=== PATIENT | male | born 2000 | race Caucasian/White ===

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

== ENCOUNTER 2021-04-05 14:21 | Emergency (ER) | payer OTHER ==
[~2021-04-05] VITALS: Ht 190.5 cm; Wt 97.5 kg
[~2021-04-05 14:21] MED LIST changes: +Augmentin 875-1 EACH PO; +BENADRYL25 MG
[2021-04-05] MEDS ORDERED: HYDR1TAB94 PO (17:04)
== END 2021-04-05 17:12 | disposition home or self-care (01) ==
LOC: ER 14:21
DX: S06.9X9A Unspecified intracranial injury with loss of consciousness of unspecified duration, initial encounter (principal); S39.012A Strain of muscle, fascia and tendon of lower back, initial encounter; S90.02XA Contusion of left ankle, initial encounter; F17.210 Nicotine dependence, cigarettes, uncomplicated; V48.5XXA Car driver injured in noncollision transport accident in traffic accident, initial encounter; Y92.410 Unspecified street and highway as the place of occurrence of the external cause
CPT/HCPCS: 70450; 72100; 72125; 73610; 99283-25; A9270

== ENCOUNTER 2021-04-24 00:02 | Emergency (ER) | payer OTHER ==
[~2021-04-24] VITALS: Ht 190.5 cm; Wt 97.5 kg
[~2021-04-24 00:02] MED LIST changes: +HYDR1TAB94 PO
[2021-04-24] MEDS ORDERED: Norco 5-325 Ta1 EACH PO (02:28)
[2021-04-24] MEDS ORDERED: SULTRIDS PO (02:28)
[2021-04-24] MEDS ORDERED: CEPH500 PO (02:28)
== END 2021-04-24 02:42 | disposition home or self-care (01) ==
LOC: ER 00:02
DX: S41.111A Laceration without foreign body of right upper arm, initial encounter (principal); F17.210 Nicotine dependence, cigarettes, uncomplicated; W45.8XXA Other foreign body or object entering through skin, initial encounter
CPT/HCPCS: 12035; 90471; 90714; 96365-59; 99282-25; J0690